=== PATIENT | male | born 1990 | race Caucasian/White ===

== ENCOUNTER → 2020-02-23 | Outpatient (CLI) | payer BC ==
--- NOTE | 2020-02-23 15:06 | REP ---
MAXILLOFACIAL CT STUDY WITHOUT CONTRAST: HISTORY: Chronic pansinusitis. No comparison imaging. 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 On axial images, the frontal sinuses are clear. Ethmoid and sphenoid sinuses are clear. Mastoid aeration is normal and symmetric. Middle ear cavities are aerated bilaterally. There is a mucous retention cyst in the right maxillary sinus anteriorly measuring 16 mm in greatest anteroposterior dimension. The maxillary sinuses are otherwise clear. Bony nasal septum is midline. No nasal polyp is appreciated. There are small Cody cells bilaterally. Ostiomeatal complexes are patent bilaterally. No intraorbital abnormality is appreciated. Visualized intracranial structures are unremarkable. Deep facial soft tissues are unremarkable and symmetric. IMPRESSION: Mucous retention cyst in the right maxillary sinus. Otherwise negative paranasal sinus CT study. Electronically Signed by Jung Warren MD 02/23/2020 04:39 P
== END ==
LOC: M RAD 14:14
PROVIDERS: ATTEND Otolaryngology
DX: J32.4 Chronic pansinusitis (principal)